=== PATIENT | male | born 1965 | race Caucasian/White ===

== ENCOUNTER 2018-11-24 16:52 | Inpatient (IN) | payer OTHER ==
[~2018-11-24] VITALS: Ht 172.7 cm; Wt 136.9 kg
[~2018-11-24 16:52] MED LIST: ASPIR-TRIN325 MG PO; ASPIRIN325 PO; CELEBREX 200 M200 M1 PO; COLACE100 MG PO; MAG-AL PLUS SUS30 ML PO; ONDANSETRON HCL4 M2 PO; OXYCODONE HCL 55 MG PO; PRINIVIL20 M1 PO; TRAMADOL 50 MG50 MG PO; XARELTO10 MG PO
[2018-11-24 16:57] VITALS: BP 118/65
[2018-11-24] MEDS ORDERED: DICLOFENAC SODI75 MG PO (17:01)
[2018-11-24 17:40] LABS: HEMATOCRIT 44.5 % (42.0-52.0); HEMOGLOBIN 15.3 gm/dL (14.0-18.0); MCHC 34.4 g/dL (28.0-37.0); NUCLEATED RBCS 0 /100WBC; PLATELET COUNT* 233 thou/uL (150-400); RBC 4.79 mil/uL (4.50-6.00); WBC 25.9 thou/uL (4.0-11.0)
[2018-11-24 17:48] LABS: CALCIUM 9.5 mg/dL (8.5-10.1); CREATININE 1.6 mg/dL (0.6-1.3)
[2018-11-24 17:53] LABS: ALBUMIN 3.3 g/dL (3.4-5.0); TOTAL BILIRUBIN 1.5 mg/dL (<0.1-1.0); TOTAL PROTEIN 7.5 g/dL (6.4-8.2)
[2018-11-24 18:05] LABS: ABSOLUTE LYMPHOCYTES 1.3 thou/uL (0.8-5.3); ABSOLUTE NEUTROPHILS 23.6 thou/uL (1.6-8.1); PLATELET ESTIMATE ADEQUATE
[2018-11-24 18:11] LABS: INFLUENZA A ANTIGEN None Detected (None Detect); INFLUENZA B ANTIGEN None Detected (None Detect)
[2018-11-24 20:07] LABS: URINE BILIRUBIN NEGATIVE (Negative); URINE BLOOD NEGATIVE (Negative); URINE CLARITY CLEAR; URINE COLOR YELLOW; URINE GLUCOSE-RANDOM NEGATIVE (Negative); URINE KETONES NEGATIVE (Negative); URINE LEUKOCYTES-REFLEX NEGATIVE (Negative); URINE NITRITE-REFLEX NEGATIVE (Negative); URINE PROTEIN NEGATIVE (Negative); URINE UROBILINOGEN 0.2 E.U./dl (0.2-1.0)
[2018-11-24 20:34] VITALS: BP 102/66
[2018-11-24 21:00] VITALS: BP 134/62
[2018-11-25] VITALS: BP 113/56
[2018-11-25 04:46] VITALS: BP 121/69
--- NOTE | 2018-11-25 05:00 | NUR ---
PT RECEIVED FROM ED. PT STATED SOB, CONNECTED O2 ON 2L. ALERT AND ORIENTED X 4. CALL LIGHT WITHIN REACH AND BED IN LOW POSITION. C/O PAIN, MEDICATION GIVEN PER EMAR. HOURLY ROUNDING DONE FOR PT SAFETY.
[2018-11-25 08:00] VITALS: BP 135/78
--- NOTE | 2018-11-25 09:33 | EKG ---
[place] [address] ELECTROCARDIOGRAM REPORT Name: RITA AKHTAR Room: [address] ADM IN .R.#: [id number] Admission: 11/24/18 Attend Phys: Sedrick Vidal MD Discharge: Date of : 65 Report #: [id number] THIS REPORT FOR: //name// [facility] ED Test Date: 2018-11-24 Test Time: 18:39:44 Pat Name: RITA AKHTAR Department: Room: [facility] Gender: M Lineman Apprentice: TDOWNS : 1965 Requested By: Monie Bartlett Order Number: [id number] MD: Negrito Aragon Measurements Intervals [place] Rate: 114 P: 76 DC: 167 QRS: -25 QRSD: 93 T: 60 QT: 335 QTc: 462 Interpretive Statements Sinus tachycardia Anterolateral infarct, old Compared to ECG 07/02/2016 09:07:23 Myocardial infarct finding now present Sinus rhythm no longer present anterior infarction now seen Electronically Signed On 11-25-2018 9:33:12 PAEDIATRIC THORACIC PHYSICIAN by Negrito Aragon [email or web address] <ELECTRONICALLY SIGNED> By: Negrito Aragon MD, FACC 11/25/18 0933 1839 1839 Negrito Aragon MD, [facility] /EPI
[2018-11-25 12:11] VITALS: BP 115/64
--- NOTE | 2018-11-25 13:56 | NUR ---
SPOKE TO THE PATIENT TO DISCUSS HIS HOME SITUATION, DISCHARGE PLANNING, AND TO INFORM OF THE ROLE OF CM. PATIENT ALERT, ORIENTED, AND TO INFROM OF THE JAIMIE OF CM. PATIENT ACTIVE AND WORKS. PATIENT RESIDES AT HOME WITH SPOUSE. PATIENT OWNS A WALKER FROM A PREVIOUS SX. PATIENT HAS HH HX WITH [facility]. PATIENT DOES NOT ANTICIPATE ANY D/C PLANNING NEEDS. CM WILL REMAIN AVIALABLE TO ASSIST AND FOLLOW NEEDED.
[2018-11-25 15:45] LABS: CALCIUM 8.8 mg/dL (8.5-10.1); CREATININE 1.1 mg/dL (0.6-1.3)
[2018-11-25 16:00] VITALS: BP 136/87
--- NOTE | 2018-11-25 18:49 | NUR ---
jinny resting in room with spouse. vital signs stable. troponin q6 hours being assessed. patine tstill has productive cough and c/o rib pain art times. denies chest pain. hourly rounding completdfor patient safety.
[2018-11-25 20:00] VITALS: BP 122/73
[2018-11-26] VITALS: BP 148/75
[2018-11-26 04:00] VITALS: BP 144/79
--- NOTE | 2018-11-26 04:59 | NUR ---
PT CARE ASSUMED AT 1930. SAT MAINTAINED IN 2L NC. SOB WITH EXERTION. ALERT AND ORIENTED X4. STATES PAIN WHILE HE COUGHS HARD. CALL LIGHT WITHIN REACH AND BED IN LOW POSITION. HOURLY ROUNDING DONE FOR PT SAFETY.
[2018-11-26 05:12] LABS: HEMATOCRIT 38.1 % (42.0-52.0); MCV 94.2 fL (80.0-100.0); MPV 7.9 fl. (7.2-11.1); RBC 4.05 mil/uL (4.50-6.00); WBC 16.5 thou/uL (4.0-11.0)
[2018-11-26 05:29] LABS: ALBUMIN 2.6 g/dL (3.4-5.0); ALKALINE PHOSPHATASE 76 U/L (46-116); ANION GAP 7 mmol/L (7-16); BUN 15 mg/dL (7-18); CALCIUM 8.5 mg/dL (8.5-10.1); CHLORIDE 103 mmol/L (98-107); CHOLESTEROL 161 mg/dL (<200); CO2 28 mmol/L (21-32); CREATININE 1.1 mg/dL (0.6-1.3); GLUCOSE 87 mg/dL (70-99); HDL CHOLESTEROL 18 mg/dL (>40); LDL CHOLESTEROL 114 mg/dL (<100); POTASSIUM 3.9 mmol/L (3.5-5.1); SGOT 43 U/L (15-37); SGPT 57 U/L (30-65); SODIUM 138 mmol/L (136-145); TC:HDL 8.9 Ratio (Not establshd); TOTAL BILIRUBIN 0.4 mg/dL (<0.1-1.0); TOTAL PROTEIN 6.3 g/dL (6.4-8.2); TRIGLYCERIDE 146 mg/dL (<150); VLDL 29 mg/dL (<40)
[2018-11-26 05:43] LABS: SERUM ASSESSMENT Clear
[2018-11-26 08:00] VITALS: BP 150/79
--- NOTE | 2018-11-26 09:45 | NUR ---
assumed pt care at 0700 report received from nurse. pt is aox4 sr on surveillance system monitor. on 2 l nc and saturation is above 95% . no complaint. new iv line in right hand. old iv line out. medications administered. will continue to monitor pt
[2018-11-26 12:00] VITALS: BP 131/71
--- NOTE | 2018-11-26 12:42 | EKG ---
[place] [address] ELECTROCARDIOGRAM REPORT Name: RITA AKHTAR Room: [address] ADM IN M.R.#: [id number] Admission: 11/24/18 Attend Phys: Sedrick Vidal MD Discharge: Date of : 65 Report #: [id number] THIS REPORT FOR: //name// [facility] Test Date: 2018-11-25 Test Time: 15:32:47 Pat Name: RITA AKHTAR Department: Room: [address] Gender: M Fumigator And Sterilizer: DIEGO : 1965 Requested By: Merna Hurtado Order Number: [id number] Reading MD: Negrito Aragon Measurements Intervals [place] Rate: 89 P: 56 [place]: 173 QRS: -2 QRSD: 99 T: 33 QT: 337 QTc: 410 Interpretive Statements Sinus rhythm Consider left atrial enlargement Inferior infarct, old Abnormal lateral Q waves Anterior infarct, old Compared to ECG 11/24/2018 18:39:44 Sinus tachycardia no longer present Myocardial infarct finding still present Electronically Signed On 11-26-2018 12:42:07 REHAB TECHNICIAN by Negrito Aragon [email or web address] <ELECTRONICALLY SIGNED> By: Negrito Aragon MD, FAC 11/26/18 1242 1532 1532 Negrito Aragon MD, [facility] /EPI
[2018-11-26 16:06] LABS: GLYCOHEMOGLOBIN (HGB A1C) 5.6 % (4.8-5.6)
[2018-11-26 16:36] VITALS: BP 136/74
--- NOTE | 2018-11-26 16:54 | NUR ---
trop level elevated x3. dr brambila paged regarding cardiac consult possibility. report given to anel RUBIO, pt is stable. iv fluid stopped. took shower today. minimum cough. clear lungs
--- NOTE | 2018-11-26 18:18 | NUR ---
RECEIVED REPORT FORM TRACEE AND ASSUMED CARE OF PT @ 1700. PT IS A/OX4,VSS,CARDIAC MONITORING IN PLACE WITH NO CHANGES.THIS NURSE REVIEWED PREVIOUS NURSE ASSESSMENT AND AGREES.IV PATENT WITH IVF INFUSING PER ORDERS.NO C/O PAIN.PT IS CALM AND COOPERATIVE.PT LEFT RESTING IN BED WITH CALL LIGHT WITHIN REACH.HOURLY ROUNDING COMPLETED FOR PT SAFETY.WILL CONTINUE TO MONITOR FOR DURATION OF SHIFT.
[2018-11-26 19:45] VITALS: BP 122/73
[2018-11-27] VITALS (7 sets, daily range): BP systolic 127–164; BP diastolic 65–88
--- NOTE | 2018-11-27 04:42 | NUR ---
PT CARE ASSUMED AT 1930. SAT MAINTAINED IN RA. ALERT AND ORIENTED X4. HAS COUGHING FITS AT TIMES. SOB WITH EXERTION. C/O PAIN WHILE COUGHING, REFUSES MEDICTION. CALL LIGHT WITHIN REACH AND BED IN LOW POSITION. HOURLY ROUNDING DONE FOR PT SAFETY.
--- NOTE | 2018-11-27 08:45 | NUR ---
RECIEVED REPORT FROM SISSY AND ASSUMED CARE OF PT @ 0397.PT IS A/O X4,VSS,TRACING SR ON THE MONITOR.IV REMOVED DUE TO INFILTRATTION.NEW IV INSERTED IN LEFT HAND PATENT AND SALINE LOCKED.PT IS CALM AND COOPERATIVE WITH NO C/O PAIN.PT HAS COUGHED THROUGHOUT THE SHIFT.PT IS UP AD RAOUL IN THE KENA.PT LEFT RESTING IN CHAIR WITH CALL LIGHT WITHIN REACH.
--- NOTE | 2018-11-27 08:51 | NUR ---
PT HAVING BRONCHOSPASM AND COMPLAINS OF CONSTANT COUGH WITH NO RELIEF FROM TESSALON PERLES. PT WOULD LIKE TO KNOW IF HE CAN HAVE THROAT NUMBING SPRAY ADDED TO HIS MEDICATION LIST TO HELP WITH HIS COUGHING FITS.
--- NOTE | 2018-11-27 18:02 | NUR ---
VSS.CARDIAC MONITORING IN PLACE WITH NO CHANGES.PT PROGRESSING TOWARDS GOALS.NO C/O PAIN.IV PATENT AND SALINE LOCKED.IV ANTIBIOTICS GIVEN.CXR COMPLETED.PT INFORMED OF PLAN OF CARE AND COMMUNICATES UNDERSTANDING.HOURLY ROUNDING COMPLETED FOR PT SAFETY.CALL LIGHT WITHIN REACH.WILL CONTINUE TO MONITOR FOR DURATION OF SHIFT.
[2018-11-28 03:43] VITALS: BP 135/77
[2018-11-28 04:53] LABS: HEMATOCRIT 40.1 % (42.0-52.0); HEMOGLOBIN 13.8 gm/dL (14.0-18.0); MCH 32.1 pg (26.0-34.0); MCHC 34.3 g/dL (28.0-37.0); MCV 93.8 fL (80.0-100.0); MPV 7.5 fl. (7.2-11.1); RBC 4.28 mil/uL (4.50-6.00); RDW-CV 12.9 % (10.5-14.5)
--- NOTE | 2018-11-28 05:01 | NUR ---
PT CARE ASSUMED AT 1930. SAT MAINTAINED IN RA. ALERT AND ORIENTED X 4. PT HAS COUGHING FIT AT TIMES. C/O PAIN WHILE COUGHING, DENIES PAIN MEDICATION. CALL LIGHT WITHIN REACH AND BED IN LOW POSITION. HOURLY ROUNDING DONE FOR PT SAFETY.
[2018-11-28 05:06] LABS: POTASSIUM 3.8 mmol/L (3.5-5.1)
[2018-11-28 08:00] VITALS: BP 144/83
[2018-11-28 12:24] VITALS: BP 133/76
--- NOTE | 2018-11-28 13:40 | 2DMMODE ---
[place] [address] 2 D/M-MODE ECHOCARDIOGRAM Name: RITA AKHTAR Room: [address] IN M.R.#: [id number] Admission: 11/24/18 Attend Phys: Sedrick Vidal, Discharge: Date of : 65 Date of Service: 11/28/18 1340 Report #: [id number] THIS REPORT FOR: //name// APPROVED REPORT Study performed: 11/28/2018 10:22:30 EXAM: Comprehensive 2D, Doppler, and color-flow Echocardiogram Patient Location: Bedside BSA: 2.48 HR: 84 bpm BP: 135/77 mmHg Other Information Study Quality: Fair Indications Sepsis Dyspnea 2D Dimensions IVSd: 15.09 (7-11mm) LVOT Diam: 22.65 (18-24mm) LVDd: 55.06 mm PWd: 13.76 (7-11mm) Ascending Ao: 31.48 (22-36mm) LVDs: 36.53 (25-40mm) Aortic Root: 32.03 mm Volumes Left Atrial Volume (Systole) LA ESV Index: 31.90 mL/m2 Aortic Valve AoV Peak Jose.: 1.75 m/s AO Peak Gr.: 12.18 mmHg LVOT Max P.09 mmHg AO Mean Gr.: 7.88 mmHg LVOT Mean P.23 mmHg LVOT Max V: 1.01 m/s AO V2 VTI: 33.88 cm LVOT Mean V: 0.70 m/s LEONORA (VTI): 2.24 cm2 LVOT V1 VTI: 18.86 cm Mitral Valve E/A Ratio: 1.09 MV Decel. Time: 165.76 ms MV E Max Jose.: 0.98 m/s MV PHT: 48.07 ms MVA (PHT): 4.58 cm2 [place] [address] 2 D/M-MODE ECHOCARDIOGRAM Name: RITA AKHTAR Room: [address] IN .R.#: [id number] Admission: 11/24/18 Attend Phys: Sedrick Vidal, Discharge: Date of : 65 Date of Service: 11/28/18 1340 Report #: [id number] TDI E/Lateral E': 9.80 E/Medial E': 9.80 Medial E' Jose.: 0.10 m/s Lateral E' Jose.: 0.10 m/s Pulmonary Valve PV Peak Jose.: 1.10 m/s PV Peak Gr.: 4.82 mmHg Left Ventricle The left ventricle is normal size. apical akinesis noted Mild concentric left ventricular hypertrophy. Left ventricular systolic function is normal. The left ventricular ejection fraction is within the normal range. LVEF is 40-45%. Grade I - abnormal relaxation pattern. Right Ventricle The right ventricle is normal size. The right ventricular systolic function is normal. Atria Left atrium is mildly dilated. The right atrium size is normal. Aortic Valve The aortic valve is normal in structure. No aortic regurgitation is present. There is no aortic valvular stenosis. Mitral Valve The mitral valve is normal in structure. There is no mitral valve regurgitation noted. No evidence of mitral valve stenosis. Tricuspid Valve The tricuspid valve is normal in structure. There is no tricuspid valve regurgitation noted. Pulmonic Valve Pulmonic valve is not well visualized. There is no pulmonic valvular regurgitation. Great Vessels The aortic root is normal in size. IVC is normal in size and collapses >50% [place] [address] 2 D/M-MODE ECHOCARDIOGRAM Name: RITA AKHTAR Room: [address] IN [facility]#: [id number] Admission: 11/24/18 Attend Phys: Sedrick Vidal, Discharge: Date of : 65 Date of Service: 11/28/18 1340 Report #: [id number] inspiration. Pericardium There is no pericardial effusion. <Conclusion> Mild concentric left ventricular hypertrophy. LVEF is 40-45%. apical akinesis noted Left atrium is mildly dilated. <ELECTRONICALLY SIGNED> By: Negrito Aragon MD, FACC 11/28/18 1340 1340 1340 Negrito Aragon MD, FAC /INF
--- NOTE | 2018-11-28 13:44 | NUR ---
Nutrition: Pt seen for high BMI. Wt usually ~300#. RD has seen pt in past - pt wanted to start an exercise program after his knee surgeries. He has not lost any weight. He is NPO currently for a stress test. He did not want to discuss heart healthy diet or wt loss tips. We spoke very briefly about healthy options, but pt was not interested in education or handouts today. He stated, "I know I should be doing this stuff. I'm just going to talk to [place] regular dr." GETACHEW encouraged pt to call with any questions. No other nutrition interventions at this time. Mild risk.
[2018-11-28 17:38] VITALS: BP 124/78
--- NOTE | 2018-11-28 18:24 | NUR ---
RECEIVED REPORT FROM SISSY RUBIO. ASSUMED CARE OF PT AROUND 0730. PT A&OX4. VSS. [facility] STORAGE ARCHITECT IN PLACE TRACING ST TO SR THIS SHIFT. AM ASSESSMENT AND VITALS COMPLETED CHARTED. IV TO LEFT HAND INTACT AND SALINE LOCKED. PT COMPLETED ECHO AND PART ONE OF STRESS TEST THIS SHIFT. PT TO COMPLETE STRESS TEST TOMORROW. PT ANXIOUS FOR DISCHARGE. FAMILY AT BEDSIDE OFF AND ON THROUGHOUT SHIFT. PT HAS DENIED PAIN OR DISCOMFORT THIS SHIFT. MEDS PER EMAR. PT CURRENTLY VISITING WITH FAMILY IN ROOM. LOW FALL RISK PRECAUTIONS IN PLACE. CALL LIGHT IS WIHTIN REACH. HOURLY ROUNDING PERFORMED. WILL CONTINUE TO MONITOR FOR DURATION OF SHIFT.
[2018-11-28 20:00] VITALS: BP 145/84
[2018-11-29 00:37] VITALS: BP 130/76
[2018-11-29 04:00] VITALS: BP 164/93
--- NOTE | 2018-11-29 05:24 | NUR ---
ASSUMED CARE OF PT AFTER REPORT AT 1930. PT A&OX4. VSS. PHYSICAL ASSESSMENT COMPLETED AND CHARTED. PT ON RA WITH 95% O2 SAT. PT TRACING SR ON TELE. PT UP ADLIB TO RESTROOM. DENIES ANY PAIN OR DISCOMFORT. FOR SECOND PART OF STRESS TODAY. PT RESTED WELL ON BED. CALL LIGHT WITHIN REACH. BED IN LOW POSITION.
[2018-11-29 08:00] VITALS: BP 135/84
[2018-11-29 12:14] VITALS: BP 139/81
--- NOTE | 2018-11-29 13:50 | CARDNUC ---
[place] [address] CARDIAC NUCLEAR IMAGING REPORT Name: RITA AKHTAR Room: [address] IN [facility]#: [id number] Admission: 11/24/18 Attend Phys: Sedrick Vidal, Discharge: Date of : 65 Date of Service: 11/29/18 1350 Report #: [id number] THIS REPORT FOR: //name// APPROVED REPORT Imaging Protocol: Stress Tc-99m/Rest Tc-99m 2 days Study performed: 11/28/2018 09:18:00 Indication: Chest pain, Acute Pneumonia. Patient Location: In-Patient Room #: [facility] Stress Tech: Kayce Zapata Stress Nurse: Yudi Hernandes RN NM Tech:MORRIS Miller Ht: 5 ft 7 in Wt: 317 lbs BSA: 2.46 m2 BMI: 49.64 Medical History Medical History: Angina, HTN, Hyperlipidemia, Obesity , SOB. Acute Pneumonia. Medications: Atorvastatin, ASA 81 mg, Lasix, Lisinopril, Hydralazine. Allergies: Penicillins Cardiac Risk Factors: Age, FHX of CAD, HTN, Hyperlipidemia, SOB, BMI. Previous Cardiac Procedures: None Pretest Chest Pain Characteristics: No chest pain Exercise History: Indeterminate Physical Disabilities: SOA, Pneumonia, BMI. Meds Held (24 hrs): None Resting Data Rest SPECT myocardial perfusion imaging was performed in supine position 30 minutes following the intravenous injection of 41.5 mCi of Tc-99m Sestamibi. Time of rest injection: 0755 Date: 11/29/2018 Time of rest imagin The images were gated to evaluate regional wall motion and calculate left ventricular ejection fraction. Administration Route: IV Administration Site: Left Hand Pharmacologic Stress Pharmacologic stress test was performed by injecting Regadenoson 0.4 [place] [address] CARDIAC NUCLEAR IMAGING REPORT Name: RITA AKHTAR Room: [address] IN [facility]#: [id number] Admission: 11/24/18 Attend Phys: Sedrick Vidal, Discharge: Date of : 65 Date of Service: 11/29/18 1350 Report #: [id number] mg IV push over 10-15 seconds immediately followed by the intravenous injection of 39.0 mCi of Tc-99m Sestamibi. Time of stress injection: 1625 Date: 11/28/2018 Time of stress imagin Administration Route: IV Administration Site: Left Hand Gated Stress SPECT was performed 40 minutes after stress injection. The images were gated to evaluate regional wall motion and calculate left ventricular ejection fraction. Stress only was performed in the Supine position. Stress Test Details Stress Test: Pharmacologic stress testing performed using 0.4 mg of regadenoson per 5 mL given IV over 10 seconds. Reason for pharmacologic stress test: Pneumonia, SOA, BMI.. HR Max Heart Rate (APMHR): 167 bpm Resting HR: 85 bpm Target HR (85% APMHR): 141 bpm Max HR Achieved: 108 bpm % of APMHR: 64 Recovery HR: 95 bpm HR response to stress: Normal HR response to stress BP Resting BP: 124/79 mmHg Max BP: 109/50 mmHg Recovery BP: 135/69 mmHg BP response to stress: Normal blood pressure response to stress. ECG Resting ECG: Sinus Rhythm anterior q waves Stress ECG: Sinus Rhythm ST Change: None Recovery ECG: nsr Recovery ST Change: none Clinical Reason for Termination: Completed protocol Stress Symptoms: Flushed/warm, Lightheaded. Exercise duration: 0 min 0 sec Exercise capacity: 1.00 METs Nurse Comments 53 year old male inpatient presented with acute pneumonia, recent report of CP, SOA and Obesity. [place] [address] CARDIAC NUCLEAR IMAGING REPORT Name: RITA AKHTAR Room: [address] IN [facility]#: [id number] Admission: 11/24/18 Attend Phys: Sedrick Vidal, Discharge: Date of : 65 Date of Service: 11/29/18 1350 Report #: [id number] well with minimal symptoms. Recovery unremarkable. Patient taken via wheelchair by staff to Nuclear Medicine for images. Patient stable with no complaints at that time. Stress ECG Conclusion negative for ischemia Study Quality Study: Fair Artifact: Mild Soft tissue attenuation artifact Lung Uptake: Normal Study Data At rest, the left ventricular ejection fraction was 39%.. Post stress, the left ventricular ejection was 33%.. SSS: 17 SRS: 18 SDS: -1 TID = 1.14. Perfusion Review of SPECT images at rest show a large, moderate to severe mid to distal anterior wall and apex perfusion defect and normal perfusion elsewhere. Images following vasodilator stress that this mid to distal anterior wall defect is fixed, without perfiinfarct ischemia. Images were reviewed using [employer]. Wall Motion apical hypokinesis Nuclear Conclusion ECG Findings: negative for ischemia Clinical Findings: equivocal Nuclear Findings: negative for ischemia Exercise Capacity: not assessed Left Ventricular Function: abnormal Risk Study: high This study is abnormal , with evidence of anterior, apical infarction or severe resting ischemia. Left [place] [address] CARDIAC NUCLEAR IMAGING REPORT Name: RITA AKHTAR Room: [address] IN [facility]#: [id number] Admission: 11/24/18 Attend Phys: Sedrick Vidal, Discharge: Date of : 65 Date of Service: 11/29/18 1350 Report #: [id number] <Conclusion> negative for ischemia <ELECTRONICALLY SIGNED> By: Dwight Sterling MD, FACC 11/29/18 1350 1350 1350 Dwight Sterling MD, FACC /INF
[2018-11-29 15:50] VITALS: BP 162/92
[2018-11-29 16:10] LABS: CALCIUM 9.6 mg/dL (8.5-10.1); CREATININE 1.2 mg/dL (0.6-1.3)
[2018-11-29 20:00] VITALS: BP 130/90
[2018-11-30] VITALS (12 sets, daily range): BP systolic 101–164; BP diastolic 67–89
--- NOTE | 2018-11-30 02:31 | NUR ---
PATIENT RESTED IN BED, NO ACUTE CHANGES. PATIENT DID NOT SHOW SIGNS OF DISTRESS. CALL LIGHT WITHIN REACH, HOURLY ROUNDING OBSERVED. PATIENT IS NPO.
[2018-11-30 05:37] LABS: ALBUMIN 2.9 g/dL (3.4-5.0); CALCIUM 9.2 mg/dL (8.5-10.1); POTASSIUM 3.8 mmol/L (3.5-5.1); TOTAL BILIRUBIN 0.5 mg/dL (<0.1-1.0)
--- NOTE | 2018-11-30 08:00 | NUR ---
CHANGE OF SHIFT BEDSIDE REPORT GIVEN PATIENT SEEN AT BEDSIDE PATIENT SITTING AT EDGE OF BED ASSUMED PATIENT CARE
--- NOTE | 2018-11-30 10:56 | NUR ---
Pt continues to plan to return home at [place]. Pt to have cath today.
[2018-11-30 11:21] LABS: APTT 27.7 Seconds (25.0-31.3); INR 1.1; PROTIME 10.9 Seconds (9.20-11.50)
--- NOTE | 2018-11-30 23:12 | NUR ---
CALL TO CARDIOLOGY REGARDING HEART PAUSES, SEE ORDERS.
[2018-12-01] VITALS: BP 113/64
--- NOTE | 2018-12-01 04:08 | NUR ---
PATIENT RESTED IN BED. PATIENT DOES NOT APPEAR TO BE IN DISTRESS. PATIENT DENIES SYMPTOMS OR CHANGES AFTER HEART PAUSES. CALL LIGHT WITHIN REACH, HOURLY ROUNDING OBSERVED.
[2018-12-01 04:12] VITALS: BP 131/72
[2018-12-01 05:23] LABS: HEMATOCRIT 43.4 % (42.0-52.0); MCH 31.9 pg (26.0-34.0); MCHC 34.5 g/dL (28.0-37.0); MCV 92.6 fL (80.0-100.0); MPV 7.3 fl. (7.2-11.1); RBC 4.68 mil/uL (4.50-6.00); RDW-CV 12.9 % (10.5-14.5); WBC 12.3 thou/uL (4.0-11.0)
[2018-12-01 05:45] LABS: ALKALINE PHOSPHATASE 78 U/L (46-116); ANION GAP 8 mmol/L (7-16); BUN 13 mg/dL (7-18); CALCIUM 9.2 mg/dL (8.5-10.1); CHLORIDE 100 mmol/L (98-107); CO2 27 mmol/L (21-32); CREATININE 1.1 mg/dL (0.6-1.3); GLUCOSE 93 mg/dL (70-99); SGOT 41 U/L (15-37); SGPT 52 U/L (30-65); SODIUM 135 mmol/L (136-145); TOTAL BILIRUBIN 0.7 mg/dL (<0.1-1.0); TOTAL PROTEIN 7.3 g/dL (6.4-8.2); TROPONIN-I LEVEL <0.06 ng/mL (<0.06)
[2018-12-01 07:30] VITALS: BP 144/64
[2018-12-01] MEDS ORDERED: LEVAQUIN 750 M750 MG PO (11:54)
[2018-12-01] MEDS ORDERED: EFFIENT10 MG PO (11:55)
[2018-12-01] MEDS ORDERED: ATORVASTATIN CA40 MG PO (11:55)
[2018-12-01] MEDS ORDERED: ASPIR 8181 MG PO (11:56)
[2018-12-01 12:00] VITALS: BP 126/61
--- NOTE | 2018-12-01 12:23 | CON ---
[address] [address] CONSULTATION Name: RITA AKHTAR Room: [address] IN M.R.#: [id number] Admission: 11/24/18 Attend Phys: Sedrick Vidal MD Discharge: Date of : 65 Report #: [id number] THIS REPORT FOR: //name// CC: Tylor Vidal DATE OF SERVICE: 11/29/2018 PRIMARY CARE PHYSICIAN: Tylor Root MD. REASON FOR CONSULT: Abnormal EKG, abnormal stress test. HISTORY OF PRESENT ILLNESS: The patient is a 53-year-old male who was admitted for shortness of breath symptoms and pneumonia as well as having some abnormal liver function test. His ECG on presentation demonstrated Q waves across the anterior precordial leads and a subsequent echocardiogram demonstrated wall motion abnormality and his nuclear stress test did show a significant defect, a large anterior and apical defect compatible with ischemia and infarct. Historically, the patient denies chest pain or pressure. He will get short of breath with activity. He attributes this to his weight and deconditioning. He denies prolonged episodes of nausea, vomiting, or diaphoresis. Currently in regards to his current infection, he is without febrile symptoms. He has no documented history of heart disease. He has a history of the aforementioned pneumonia, degenerative joint disease, elevated LFTs, hypertension. HOME MEDICATIONS: Include lisinopril 20 mg daily, tramadol and diclofenac p.r.n. PAST SURGICAL HISTORY: Prior knee surgery. SOCIAL HISTORY: He is a nonsmoker. FAMILY HISTORY: Heart disease. Mother had heart disease and of a stroke. He rarely drinks. REVIEW OF SYSTEMS: GENERAL: No fevers or chills. GASTROINTESTINAL: No hematemesis or melena. GENITOURINARY: No dysuria or hematuria. CARDIOVASCULAR: No chest pain, positive dyspnea, no orthopnea, no PND. NEUROLOGIC: Denies headaches, blurry vision, slurred speech, [place] [address] CONSULTATION Name: RITA AKHTAR Room: [address]#: [id number] Admission: 11/24/18 Attend Phys: Sedrick Vidal MD Discharge: Date of : 65 Report #: [id number] HEMATOLOGIC: No anemia or bleeding disorders. RENAL: No history of kidney failure. PHYSICAL EXAMINATION: VITAL SIGNS: Blood pressure is 139/81, pulse is 86, respiratory rate 18. His weight is 140 kilograms. GENERAL: This is an obese, middle-aged male. He is alert, in no apparent distress. HEENT: Eyes: EOMs intact. No facial asymmetry. NECK: Supple. No jugular venous distention. Upstrokes are normal. CARDIOVASCULAR: Regular. I could not hear a murmur or S3. LUNGS: Clear to auscultation. ABDOMEN: Soft, nontender. EXTREMITIES: No peripheral edema. NEUROLOGIC: There are no focal deficits. PSYCHIATRIC: The patient has appropriate mood and affect. Electrocardiogram shows a sinus rhythm with poor R-wave progression. LABORATORY DATA: Hemoglobin is 13.8, white blood cell count is 11.0, platelet count is 258,000. Sodium is 138, potassium 3.8, chloride is 103, BUN is 10, creatinine is 1.0, GFR is 78. AST is 43, ALT is 52. His LDL cholesterol is 114, total cholesterol is 161, triglycerides 146. IMPRESSION: 1. Shortness of breath. 2. Abnormal stress test. 3. Coronary artery disease. 4. Pneumonia. 5. Hypertension. At this point in time, given the patient's shortness of breath which is probably an anginal equivalent and his abnormal stress test, I have arranged for further evaluation with diagnostic cardiac catheterization. The risks and benefits of the procedure are described to the patient in lay terms. The patient elects to proceed. <ELECTRONICALLY SIGNED> By: Dwight Sterling MD, FACC 12/01/18 1223 1537 0100Dwight Sterling MD, FACC /nt
[2018-12-01] MEDS ORDERED: CARVEDILOL3.125 MG PO (12:33)
--- NOTE | 2018-12-01 15:27 | EKG ---
[place] [address] ELECTROCARDIOGRAM REPORT Name: RITA AKHTAR Room: [address] DIS IN M.R.#: [id number] Admission: 11/24/18 Attend Phys: Sedrick Vidal MD Discharge: 12/01/18 Date of : 65 Report #: [id number] THIS REPORT FOR: //name// [facility] Test Date: 2018-11-30 Test Time: 14:56:18 Pat Name: RITA AKHTAR Department: Room: [address] Gender: M Laborer Pipeline: : 1965 Requested By: Marques Storey Order Number: [id number] Marilee MD: Marques Storey Measurements Intervals [place] Rate: 76 P: 59 [place]: 191 QRS: 37 QRSD: 97 T: 67 QT: 390 QTc: 439 Interpretive Statements Sinus rhythm Inferior infarct, old Extensive anterior infarct, old Compared to ECG 11/25/2018 15:32:47 Q waves no longer present Myocardial infarct finding still present Electronically Signed On 12-01-2018 15:27:10 TEST DECK SUPERVISOR by Marques Storey [email or web address] <ELECTRONICALLY SIGNED> By: Marques Storey MD, [facility] 12/01/18 1527 1456 1456 Marques Storey MD, [facility] /EPI
--- NOTE | 2018-12-01 15:43 | EKG ---
[place] [address] ELECTROCARDIOGRAM REPORT Name: RITA AKHTAR Room: [address] DIS IN M.R.#: [id number] Admission: 11/24/18 Attend Phys: Sedrick Vidal MD Discharge: 12/01/18 Date of : 65 Report #: [id number] THIS REPORT FOR: //name// [facility] Test Date: 2018-12-01 Test Time: 11:30:10 Pat Name: RITA AKHTAR Department: Room: [address] Gender: M Stone Setter: : 1965 Requested By: Marques Storey Order Number: [id number] Marilee MD: Marques Storey Measurements Intervals [place] Rate: 86 P: 39 [place]: 178 QRS: 21 QRSD: 93 T: 76 QT: 357 QTc: 427 Interpretive Statements Sinus rhythm Inferior infarct, old Extensive anterior infarct, old Compared to ECG 11/25/2018 15:32:47 Myocardial infarct finding still present Electronically Signed On 12-01-2018 15:42:57 PROJECT DEVELOPER by Marques Storey [email or web address] <ELECTRONICALLY SIGNED> By: Marques Storey MD, [facility] 12/01/18 1542 1130 1130 Marques Storey MD, [facility] /EPI
--- NOTE | 2018-12-02 10:58 | CARD ---
[address] [address] CARDIAC CATH REPORT Name: RITA AKHTAR Room: [address] IN .R.#: [id number] Admission: 11/24/18 Attend Phys: Sedrick Vidal MD Discharge: 12/01/18 Date of : 65 Report #: [id number] THIS REPORT FOR: //name// APPROVED REPORT Study performed: 11/30/2018 11:54:19 Patient Details Patient Status: In-Patient Room #: 219 The patient is a 53 year-old male Event Personnel Marques Storey Foreman [employer] Department, Dodie Sam RN Vault Cashier, Carlitos Diaz (R) Monitor, Rita Beckwith Scrub Procedures Performed Left heart catheterization left ventriculography selective coronary arteriography and percutaneous coronary intervention with recanalization of a chronic total occlusion of the mid left anterior descending coronary artery Indication Positive stress test Risk Factors Obesity, Hypercholesterolemia, Hypertension Admission/Lab Medications/Medications given during procedure Aspirin, Heparin Unfract., Angiomax bolus and infusion Procedure Narrative The patient was brought electively to the Cardiac Catheterization Laboratory and was prepped and draped in a sterile manner. The right femoral was infiltrated with 2% Lidocaine subcutaneous anesthesia. A Terrell 6 FR sheath was inserted into the right femoral artery. Coronary angiography was performed using coronary diagnostic catheters. The right coronary system was accessed and visualized with a Diagnostic JR4 catheter. The left coronary system was accessed and visualized with a Diagnostic JL4 catheter. The left ventricle was accessed and visualized with a Diagnostic Straight Pig catheter. Left ventricular/Aortic Valve gradient assessed via catheter pullback. Left ventriculogram was performed in TAYLOR projection. Pre-demployment femoral angiogram was performed . Closure device was deployed with a 6 Fr Angioseal. The patient tolerated [place] [address] CARDIAC CATH REPORT Name: RITA AKHTAR Room: [address]#: [id number] Admission: 11/24/18 Attend Phys: Sedrick Vidal MD Discharge: 12/01/18 Date of : 65 Report #: [id number] were no complications associated with the procedure. There was no hematoma. Intraoperative Conscious Sedation Sedation start time: 12:33 Case end Time: 13:46 Fentanyl 25 mcg Versed 2 mg Fluoro Time: 20.2 minutes Dose: DAP [id number] cGycm2 3869 mGy Contrast Type and Amount: Visipaque 450 ml Diagnostic Cath Left Main 0% narrowing LAD 100% chronic total occlusion of the mid LAD with recanalization and JODIE 1 flow distally and with right to left collaterals faintly filling the distal LAD in retrograde fashion Circumflex 0% narrowing Right Coronary 40% mid vessel narrowing with 75% to 80% distal stenosis with collaterals from the distal right coronary artery filling the LAD in retrograde fashion Left Ventriculography The left ventricle is normal in size with contractility. The left ventricular ejection fraction is estimated to be 40%. Left ventricular wall motion abnormalities are present. There is no mitral insufficiency. Moderate anterior hypokinesis is noted Hemodynamics The aortic pressure is 120/62 mmHg with a mean of 65 mmHg. The left ventricular pressure is 118/3 mmHg with a mean of mmHg. The left ventricular end diastolic pressure is 10 mmHg. There was no gradient across the aortic valve upon pullback. PCI Technique Lesion Anticoagulation was achieved with Heparin. Patient [place] [address] units. Percutaneous coronary intervention was performed on the mid left anterior descending artery segment. The lesion stenosis prior to intervention was 100% with JODIE 1 flow. A 6F XB LAD 3.5 Guide Catheter was used to engage the ostium. A [employer] Flex 300cm Interventional Guidewire was used to cross the lesion. BALLOON DILATION A Balloon catheter Mini Trek 0TW 1.2 X 12 was [place] [address] CARDIAC CATH REPORT Name: RITA AKHTAR Room: [address] IN [facility]#: [id number] Admission: 11/24/18 Attend Phys: Sedrick Vidal MD Discharge: 12/01/18 Date of : 65 Report #: [id number] up to 14.00atm for 11seconds. Additional Inflation: 14.00atm for 7seconds. Additional Inflation: 16.00atm for 6seconds. STENT DEPLOYMENT A drug-eluting stent Ethel RX Stent 2.0X26mm was inserted and inflated up to 16.00atm for 9seconds. Additional Inflation: 18.00atm for 8seconds. Final angiography reveals 10 % stenosis with JODIE 3 flow. COMMENTS A chronic total occlusion of the mid LAD was traversed with use of a fine cross microcatheter and a Fielder XT wire with which I was able to penetrate the fibrous cap. I then successively dilated this lesion with 1.2 x 12 and 2.25 x 12 mm balloons prior to stent deployment BALLOON DILATION A Balloon catheter was inserted and inflated up to 14.00atm for 12seconds. Additional Inflation: 16.00atm for 11seconds. Additional Inflation: 16.00atm for 9seconds. STENT DEPLOYMENT A drug-eluting stent Nawaf RX Stent 2.5X8mm was inserted and inflated up to 12.00atm for 8seconds. Additional Inflation: 15.00atm for 7seconds. Additional Inflation: 10.00atm for 5seconds. Conclusion #1 significant coronary artery disease characterized by the following: A1 100% chronic total occlusion of the mid LAD with recanalization and JODIE 1 flow distally as well as faint retrograde filling via right to left collaterals B 0 percent left main and circumflex narrowing C 40% mid right coronary narrowing with 75-80% distal stenosis with right to left collaterals filling the distal LAD #2 moderate reduction in global left ventricular systolic function, estimate ejection fraction 40% with anterior hypokinesis #3 normal left-sided hemodynamics study #4 successful recanalization of the chronic total occlusion of the [address] [address] CARDIAC CATH REPORT Name: RITA AKHTAR Room: 219-P [facility] M.R.#: [id number] Admission: 11/24/18 Attend Phys: Sedrick Vidal MD Discharge: 12/01/18 Date of : 65 Report #: [id number] mid LAD with deployment of 2 drug-eluting stents at that site after penetration of the fibrous cap with a Fielder XT wire and dilatation with sequentially larger diameter balloon catheters. There was 10% residual following final stent deployment and JODIE-3 flow to the distal vessel. Recommendations Cardiac Risk Reduction Program Aggressive Medical Therapy Medications Administered Aspirin (any) Prasugrel Diagnostic Cath Approved by: Marques Storey MD Date/Time: 12/02/2018 10:57:02 <ELECTRONICALLY SIGNED> By: Marques Storey MD, [facility] 12/02/18 1057 1057 [id number] Storey MD, FAC /INF
== END 2018-12-01 14:44 | disposition home or self-care (01) | DRG 853 ==
LOC: M.ERS 16:52 → M.TBA-ER 19:07 → M.2W 19:07
PROVIDERS: Family Medicine; Internal Medicine; Internal Medicine Cardiovascular Disease; Nurse Practitioner Family; ADMIT Internal Medicine
PROC: 027035Z Dilation of Coronary Artery, One Artery with Two Drug-eluting Intraluminal Devices, Percutaneous Approach (ICD-10-PCS; principal; 2018-11-30)
PROC: B211YZZ Fluoroscopy of Multiple Coronary Arteries using Other Contrast (ICD-10-PCS; principal; 2018-11-30)
PROC: B215YZZ Fluoroscopy of Left Heart using Other Contrast (ICD-10-PCS; principal; 2018-11-30)
PROC: 4A023N7 Measurement of Cardiac Sampling and Pressure, Left Heart, Percutaneous Approach (ICD-10-PCS; principal; 2018-11-30)
DX: A41.9 Sepsis, unspecified organism (principal); J96.21 Acute and chronic respiratory failure with hypoxia; J15.6 Pneumonia due to other Gram-negative bacteria; N17.0 Acute kidney failure with tubular necrosis; I50.30 Unspecified diastolic (congestive) heart failure; Z68.42 Body mass index [BMI] 45.0-49.9, adult; I13.0 Hypertensive heart and chronic kidney disease with heart failure and stage 1 through stage 4 chronic kidney disease, or unspecified chronic kidney disease; M19.90 Unspecified osteoarthritis, unspecified site; Z96.653 Presence of artificial knee joint, bilateral; E66.01 Morbid (severe) obesity due to excess calories; I25.10 Atherosclerotic heart disease of native coronary artery without angina pectoris; N18.2 Chronic kidney disease, stage 2 (mild); Z79.82 Long term (current) use of aspirin; Z88.0 Allergy status to penicillin; Z82.49 Family history of ischemic heart disease and other diseases of the circulatory system; Z82.3 Family history of stroke; Z79.899 Other long term (current) drug therapy

== ENCOUNTER → 2019-01-09 | Outpatient (CLI) | payer OTHER ==
[~2019-01-09] MED LIST changes: +ASPIR 8181 MG PO; +ATORVASTATIN CA40 MG PO; +CARVEDILOL3.125 MG PO; +DICLOFENAC SODI75 MG PO; +EFFIENT10 MG PO; +LEVAQUIN 750 M750 MG PO
--- NOTE | 2019-01-09 17:30 | 2DMMODE ---
[place] [address] 2 D/M-MODE ECHOCARDIOGRAM Name: RITA AKHTAR Room: [facility]#: [id number] Admission: 01/09/19 Attend Phys: Mark Carvajal, Discharge: Date of : 65 Date of Service: 01/09/19 1730 Report #: [id number] THIS REPORT FOR: //name// APPROVED REPORT Study performed: 01/09/2019 14:24:55 EXAM: Comprehensive 2D, Doppler, and color-flow Echocardiogram Patient Location: Out-Patient BSA: 2.44 HR: 76 bpm BP: 135/77 mmHg Other Information Study Quality: Fair Indications Congestive Heart Failure 2D Dimensions IVSd: 13.81 (7-11mm) LVOT Diam: 20.87 (18-24mm) LVDd: 60.72 mm PWd: 12.33 (7-11mm) Ascending Ao: 32.56 (22-36mm) LVDs: 43.84 (25-40mm) Aortic Root: 31.88 mm Volumes Left Atrial Volume (Systole) LA ESV Index: 19.50 mL/m2 Aortic Valve AoV Peak Jose.: 1.56 m/s AO Peak Gr.: 9.71 mmHg LVOT Max P.88 mmHg AO Mean Gr.: 5.49 mmHg LVOT Mean P.45 mmHg LVOT Max V: 1.10 m/s AO V2 VTI: 31.38 cm LVOT Mean V: 0.72 m/s LEONORA (VTI): 2.75 cm2 LVOT V1 VTI: 25.26 cm Mitral Valve E/A Ratio: 0.95 MV Decel. Time: 221.70 ms MV E Max Jose.: 0.62 m/s MV PHT: 64.29 ms MVA (PHT): 3.42 cm2 [place] [address] 2 D/M-MODE ECHOCARDIOGRAM Name: RITA AKHTAR Room: [facility]#: [id number] Admission: 01/09/19 Attend Phys: Mark Carvajal, Discharge: Date of : 65 Date of Service: 01/09/19 1730 Report #: [id number] TDI E/Lateral E': 8.86 E/Medial E': 8.86 Medial E' Jose.: 0.07 m/s Lateral E' Jose.: 0.07 m/s Pulmonary Valve PV Peak Jose.: 1.13 m/s PV Peak Gr.: 5.09 mmHg Left Ventricle The left ventricle is normal size. There is a region of hypokinesis involving the mid to distal and apical anterior and anteroseptal wall. There is normal left ventricular wall thickness. Left ventricular systolic function is mildly decreased. LVEF is 45-50%. Transmitral Doppler flow pattern suggests impaired LV relaxation. Right Ventricle The right ventricle is normal size. The right ventricular systolic function is normal. Atria The left atrium size is normal. The right atrium size is normal. Aortic Valve The aortic valve is normal in structure. No aortic regurgitation is present. There is no aortic valvular stenosis. Mitral Valve The mitral valve is normal in structure. There is no mitral valve regurgitation noted. No evidence of mitral valve stenosis. Tricuspid Valve The tricuspid valve is normal in structure. There is no tricuspid valve regurgitation noted. Pulmonic Valve The pulmonary valve is normal in structure. There is no pulmonic valvular regurgitation. Great Vessels The aortic root is normal in size. IVC is normal in size and collapses >50% with inspiration[place] [address] 2 D/M-MODE ECHOCARDIOGRAM Name: RITA AKHTAR Room: [facility]#: [id number] Admission: 01/09/19 Attend Phys: Mark Carvajal, Discharge: Date of : 65 Date of Service: 01/09/19 1730 Report #: [id number] There is no pericardial effusion. <Conclusion> The left ventricle is normal size. There is normal left ventricular wall thickness. Left ventricular systolic function is mildly decreased. LVEF is 45-50%. Transmitral Doppler flow pattern suggests impaired LV relaxation. There is a region of hypokinesis involving the mid to distal and apical anterior and anteroseptal wall. IVC is normal in size and collapses >50% with inspiration. <ELECTRONICALLY SIGNED> By: Mark Carvajal MD, FACC 01/09/19 1730 173 173 Mark Carvajal MD, FACC /INF
== END ==
LOC: M.CRD 14:00
DX: I25.10 Atherosclerotic heart disease of native coronary artery without angina pectoris (principal); I50.9 Heart failure, unspecified; Z88.0 Allergy status to penicillin

== ENCOUNTER → 2019-01-23 | Outpatient (CLI) | payer OTHER ==
--- NOTE | 2019-02-01 21:51 | SLEEP ---
[address] [address] SLEEP STUDY REPORT Name: RITA AKHTAR Room: [facility]#: [id number] Admission: 01/23/19 Attend Phys: Nedra Fiore Discharge: Date of : 65 Report #: [id number] THIS REPORT FOR: //name// CC: [facility] This study has been reviewed in its entirety by a board certified sleep specialist DATE OF SERVICE: 01/24/2019 HOME SLEEP STUDY The patient is 53 years old who weighs 302 pounds with a BMI of 45.9. The patient's Morris score was 6. The patient underwent home sleep study performed at [facility]. Total recording time was 460 minutes. During the night study, the patient had 83 obstructive apneas, no central or mixed apneas and there were 205 hypopneas. The patient's apnea-hypopnea index was 37.5 per hour. Supine index was the same. Nocturnal oximetry study revealed an average oxygen saturation of 92% and the lowest of 74%. 58 minutes were spent in oxygen saturation less than 90%. Mean heart rate was 65 beats per minute with a maximum of 91 beats per minute. IMPRESSION: 1. Severe sleep apnea-hypopnea syndrome with an apnea-hypopnea index of 37.5 per hour. 2. Nocturnal hypoxia secondary to obstructive sleep apnea. RECOMMENDATIONS: 1. The patient would benefit from in-lab CPAP titration study vs home Auto-Titration study. 2. Once optimum CPAP pressure is achieved, then follow up in 4-6 weeks to assess compliance with CPAP and to document clinical improvement. 3. Weight loss is strongly advised. 4. Avoid BATTERY INSPECTOR depressants. 5. Cautioned regarding driving until symptoms of sleep apnea resolve with the use of CPAP. <ELECTRONICALLY SIGNED> By: Anam Weiss MD 02/01/19 2151 1458 [id number] Lori Weiss MD /nt
== END ==
LOC: M.SLEEPLAB 14:56
DX: G47.33 Obstructive sleep apnea (adult) (pediatric) (principal); R09.02 Hypoxemia

== ENCOUNTER → 2019-02-24 | Outpatient (CLI) | payer OTHER ==
--- NOTE | 2019-02-27 20:24 | SLEEP ---
[address] [address] SLEEP STUDY REPORT Name: RITA AKHTAR Room: [facility]#: [id number] Admission: 02/24/19 Attend Phys: Dwight Sterling MD Discharge: Date of : 65 Report #: [id number] THIS REPORT FOR: //name// CC: Tylor Sterling MD [facility] This study has been reviewed in its entirety by a board certified sleep specialist DATE OF SERVICE: 02/24/2019 SLEEP STUDY ATTENDING PHYSICIAN: Dr. Dwight Sterling. The patient is a 53-year-old who weighs 300 pounds with a BMI of 45.6. The patient's Cleveland score was 5. The patient underwent split night study performed by [facility]. During the night study, the patient spent 459 minutes in bed and slept for 340 minutes with a sleep efficiency of 73%. Sleep latency was 32 minutes with a REM latency of 159 minutes. Overall, sleep architecture showed increased stage 1 sleep, normal stage 2 sleep, normal N3 sleep and normal REM sleep. During the initial diagnostic portion of the study, the patient slept for 148 minutes. During that time, the patient had 45 obstructive apneas, no mixed or central apneas and 30 hypopneas. The patient's apnea hypopnea index was 37 per hour. REM index of 50 per hour and a supine index of 120 per hour. EKG monitoring revealed an average heart rate of 72 beats per minute, no sustained arrhythmias observed. PLMS were seen at an index of 8 per hour and 3 per hour caused EEG arousals. Nocturnal oximetry study revealed an average oxygen saturation of 94% with a lowest of 79%. 5 minutes were spent in oxygen saturation of less than 89%. The patient met the split night criteria for CPAP initiation. It was started at 5 cm water and titrated up to 18 cm water. At the final pressure, the patient slept for 15 minutes. Entire time was spent in REM sleep. The patient had supine sleep as well. The patient's AHI was reduced to 3.9 per hour and oxygen saturation remained above 89%. IMPRESSION: 1. Severe sleep apnea-hypopnea syndrome at an apnea hypopnea index of 37 [place] [address] SLEEP STUDY REPORT Name: RITA AKHTAR Room: [facility]#: [id number] Admission: 02/24/19 Attend Phys: Dwight Sterling MD Discharge: Date of : 65 Report #: [id number] hour. 2. Nocturnal hypoxia secondary to obstructive sleep apnea, but resolved with continuous positive airway pressure. 3. No clinically significant periodic limb movements during sleep. RECOMMENDATIONS: 1. CPAP at 18 cm water completely eliminated the patient's sleep apnea and should be used on a nightly basis. 2. Follow up in 4-6 weeks to assess compliance with CPAP and to document clinical improvement. 3. Weight loss is strongly advised. 4. Avoid MAGNETIC GRINDER OPERATOR depressants. 5. Cautioned regarding driving until symptoms of sleep apnea resolve with the use of CPAP. <ELECTRONICALLY SIGNED> By: Anam Weiss MD 02/27/192023 1636 1955Aindira Weiss MD /nt
== END ==
LOC: M.SLEEPLAB 19:51
DX: G47.33 Obstructive sleep apnea (adult) (pediatric) (principal); G47.34 Idiopathic sleep related nonobstructive alveolar hypoventilation; I13.0 Hypertensive heart and chronic kidney disease with heart failure and stage 1 through stage 4 chronic kidney disease, or unspecified chronic kidney disease; N18.3 Chronic kidney disease, stage 3 (moderate); I50.20 Unspecified systolic (congestive) heart failure; I25.10 Atherosclerotic heart disease of native coronary artery without angina pectoris; E78.00 Pure hypercholesterolemia, unspecified; E78.5 Hyperlipidemia, unspecified; Z88.0 Allergy status to penicillin; Z95.1 Presence of aortocoronary bypass graft; Z96.653 Presence of artificial knee joint, bilateral; Z79.899 Other long term (current) drug therapy; Z82.3 Family history of stroke